=== PATIENT | female | born 1970 | race Caucasian/White ===

== ENCOUNTER → 2021-08-25 15:33 | Outpatient (CLI) | payer OTHER, SELFPAY ==
--- NOTE | ~2021-08-25 | MM_ITS ---
EXAMINATION: MM screening [facility] BI w aubrey HISTORY: Screening mammogram TECHNIQUE: Craniocaudal and mediolateral oblique 3-D tomosynthesis images were obtained and synthetic 2-D images were generated. CAD analysis was submitted and interpreted. COMPARISON: 11/07/2018, 09/07/2016, 08/28/2016 BREAST PARENCHYMAL COMPOSITION: There are scattered areas of fibroglandular density. FINDINGS: RIGHT BREAST: There is a possible mass in the middle third of the outer breast best appreciated 7.5 c m from the nipple on the craniocaudal view. LEFT BREAST: There is no evidence of suspicious mass, calcification, or architectural distortion to s uggest malignancy. There has been no significant interval change. IMPRESSION: 1. Possible right breast mass. 2. Additional mammographic views and possible breast ultrasound are recommended. BI-RADS Category 0: Incomplete: Needs additional imaging evaluation. Reviewed, dictated and finalized at location A. SONIC ENGINEER IMPRESSION: 1. Possible right breast mass. 2. Additional mammographic views and possible breast ultrasound are recommended . BI-RADS Category 0: Incomplete: Needs additional imaging evaluation.
--- NOTE | ~2021-08-25 | DEXA_ITS ---
Bone Density Report Name: MICHAEL MCDERMOTT Age: 51 Sex: Female Ethnicity: White Date of : 1970 Indication: postmenopausal; screening for osteoporosis; height loss; Referring Provider: Madai, Kisha Study: Bone densitometry was performed. Exam Date: August 25, 2021 Accession number: [id number] Bone Density: Region BMD T-score Z-score Classification AP Spine (L1-L4) 1.100 0.5 1.3 Normal Femoral Neck (Left) 0.841 -0.1 0.7 Normal Total Hip (Left) 1.074 1.1 1.6 Normal Femoral Neck (Right) 0.901 0.5 1.3 Normal Total Hip (Right) 1.058 1.0 1.5 Normal Total Hip Mean 1.066 1.1 1.6 Normal World Health Organization criteria for BMD impression classify patients as: Normal (T-score at or above -1.0), Osteopenia (T-score between -1.0 and -2.5), or Osteoporosis (T-score at or below -2.5). 10-year Fracture Risk: FRAX not reported because: All T-scores for Spine Total, Hip Total, Femoral Neck at or above -1.0 Clinical Information Provided by Patient: Has used the following medications: Vitamin D Patient maximum height was 64 Drinks caffeinated beverages Onset of menses at age 12 Number of children 2 Missed period for more than 6 months in a row Impression: The patient has normal bone mass. Discussion: BONE DENSITY IS ABOVE THE MINIMUM DESIRABLE LEVEL AT ALL SKELETAL SITES TESTED. This patient?s bone mineral density is above the minimum desirable level (T-score -1.0 or better) at all sites measured. The patient should follow a healthful lifestyle (good nutrition with adequate calcium and vitamin D, and appropriate weight-bearing exercise). Follow-Up: Consider repeating this study in 5 years or sooner if there is some new clinical indication. Reported by: [facility] on 08/25/2021 4:15:00 PM. Reviewed, dictated and finalized at location AMeliza SORENSEN
== END ==
PROVIDERS: PCP Nurse Practitioner; Visit Provider Nurse Practitioner
DX: Z12.31 Encounter for screening mammogram for malignant neoplasm of breast (principal); Z13.820 Encounter for screening for osteoporosis; Z78.0 Asymptomatic menopausal state; R92.8 Other abnormal and inconclusive findings on diagnostic imaging of breast
CPT/HCPCS: 77063; 77067; 77080

== ENCOUNTER → 2021-09-10 07:57 | Outpatient (CLI) | payer OTHER, SELFPAY ==
--- NOTE | ~2021-09-10 | MMUS_ITS ---
EXAMINATION: MM diagnostic [facility] RT w aubrey, US breast RT limited HISTORY: Possible right breast mass on screening mammogram TECHNIQUE: Additional 3-D tomosynthesis images of the right breast were performed and synthetic 2-D i mages were generated. CAD analysis was submitted and interpreted. High resolution limited right breas t ultrasound was performed. COMPARISON: 08/25/2021, 11/07/2018 BREAST PARENCHYMAL COMPOSITION: There are scattered areas of fibroglandular density. FINDINGS: MAMMOGRAPHIC FINDINGS: There is a return to baseline fibroglandular appearance with spot compression of the right breast in the area questioned on screening mammogram. ULTRASOUND: There is no evidence of focal abnormal solid or cystic mass in the vicinity of the mammographic findi ng in question. IMPRESSION: 1. No mammographic or sonographic evidence of malignancy. 2. Recommend routine screening mammography in one year. BI-RADS Category 1: Negative Reviewed, dictated and finalized at location A. NESS AFFAIRS MANAGER IMPRESSION: 1. No mammographic or sonographic evidence of malignancy. 2. Recommend routine screening mammography in one year. BI-RADS Category 1: Negative
== END ==
PROVIDERS: Visit Provider Obstetrics & Gynecology Gynecology
DX: R92.8 Other abnormal and inconclusive findings on diagnostic imaging of breast (principal)
CPT/HCPCS: 76642; 77061; 77065; G0279

== ENCOUNTER 2022-09-14 13:15 | Emergency (ER) | payer OTHER, SELFPAY ==
--- NOTE | ~2022-09-14 | XR_ITS ---
EXAMINATION: XR lumbar spine 2-3V DATE: 09/14/2022 13:50 INDICATION: Low back pain. TECHNIQUE: 3 views of lumbar spine were obtained. COMPARISON: None. FINDINGS: There is 9 degrees levocurvature of lumbar spine. Vertebral body heights are normal. There is mildly decreased disc height at L3-L4 and L4-L5. There are endplate osteophytes at most levels. Th ere is multilevel mild to moderate facet joint osteoarthritis. Surgical clips in the right upper quad rant are likely from cholecystectomy. IMPRESSION: 1. Mild lumbar spondylosis. Reviewed, dictated and finalized at location A. ON PICTURE SET WORKER IMPRESSION: 1. Mild lumbar spondylosis.
[2022-09-14 13:25] VITALS: BP 141/88; PULSE 98; RESP 16; TEMP 36.5; O2SAT 98
[2022-09-14 13:28] VITALS: BP 141/88; PULSE 98; RESP 16; TEMP 36.5; O2SAT 98
--- NOTE | 2022-09-14 13:59 | ED.GENADULT ---
HPI - General Adult General Chief complaint: Back Pain/Injury Stated complaint: INJURED BACK/L LEG/L HIP NUMBNESS Source: patient Mode of arrival: ambulatory Limitations: no limitations History of Present Illness HPI narrative: Patient presents for evaluation of low back pain. She has a history of low back pain for several decades. She can identify any specific initial injury. However over the years she has had certain movements that have caused worsening pain. She has seen a chiropractor in the past. She rates her pain currently 8/10 in severity, which has been fairly consistent over the past two weeks. She states pain is sharp with radiation into the left lower extremity, particularly the hip. She has some numbness in her left leg. She sta She denies saddle anesthesia. No bladder or bowel incontinence. She tried taking ibuprofen and tylenol with codeine for her symptoms. No additional complaints or concerns. Related Data Home Medications Medication Instructions Recorded Confirmed bupropion HCl 300 mg 24 hr tablet, 300 mg PO QAM 01/20/21 09/14/22 extended release cholecalciferol (vitamin D3) 1,250 1,250 mcg PO WEEKLY 01/20/21 09/14/22 mcg (50,000 unit) capsule escitalopram oxalate 20 mg tablet 20 mg PO DAILY 01/20/21 09/14/22 levothyroxine 100 mcg tablet 100 mcg PO DAILY 01/20/21 09/14/22 (Synthroid) Allergies Allergy/AdvReac Type Severity Reaction Status Date / Time Cephalosporins Allergy Mild GI UPSET Verified 09/14/22 13:25 tetanus toxoid, adsorbed Allergy Unknown Fever Verified 09/14/22 13:25 Tetanus Vaccines and Toxoid Allergy Unknown Fever Verified 09/14/22 13:25 tetanus vaccine Allergy Mild fever, Uncoded 09/14/22 13:25 chills, vomiting, headache HIGH MOLD LEVELS Allergy Unknown SNEEZEY, Uncoded 09/14/22 13:25 SORE THROAT, SINUS INFECTION Review of Systems Review of Systems: CONSTITUTIONAL: Denies fever, chills, or sweats. EYES: Denies visual changes, redness, or discharge. ENT: Denies rhinorrhea, congestion, sore throat, or otalgia. CARDIOVASCULAR: Denies chest pain, palpitations, or edema. RESPIRATORY: Denies cough or dyspnea. GASTROINTESTINAL: Denies abdominal pain, nausea, vomiting, or diarrhea. GENITOURINARY: Denies dysuria or hematuria. SKIN: Denies rash or itching. MUSCULOSKELETAL: Reports low back pain. Reports left hip pain. NEUROLOGIC: Denies headache, numbness, dizziness, or weakness. PSYCHIATRIC: Denies anxiety or depression. [facility] Past Medical History Medical History Anxiety Essential hypertension Hypothyroidism Mixed hyperlipidemia Surgical History Surgical History History of Family History Family History Other Alzheimer disease Diabetes mellitus Social History Social History Smoking status: Never smoker Second hand tobacco smoke exposure: No Alcohol intake: current Substance use: never Substance use type: does not use Living arrangements: with family Occupation/Education: occupation Gender identity (if verbalized by the patient): Female Sexual Orientation (if Verbalized by the Patient): Straight or Heterosexual Spiritual care concerns: No Agree to blood products: Yes Exam Narrative: GENERAL: Well-appearing, well-nourished, and in no acute distress. HEAD: Normocephalic, atraumatic. EYES: PERRLA and EOMI. ENT: Nares clear, no rhinorrhea or epistaxis. Mucous membranes moist. Oropharynx without tonsillar hypertrophy exudate or other lesions. Bilateral TMs pearly gutierrez nonbulging NECK: Supple. No adenopathy or masses. No carotid bruits or JVD CHEST: Clear to auscultation. No respiratory distress. No wheezes rales or rhonchi HEART: Regular rate and rhyt
[2022-09-14] MEDS: KETOROLAC (*BKC) 60 MG/2 ML VIAL IM (14:00)
== END 2022-09-14 14:19 | disposition home or self-care (01) ==
PROVIDERS: Emergency Provider Nurse Practitioner; PCP Family Medicine
DX: M54.16 Radiculopathy, lumbar region (principal); M47.816 Spondylosis without myelopathy or radiculopathy, lumbar region; I10 Essential (primary) hypertension; E03.9 Hypothyroidism, unspecified; E78.2 Mixed hyperlipidemia; F41.9 Anxiety disorder, unspecified
CPT/HCPCS: 72100; 96372; 99213; G0463; J1885

== ENCOUNTER → 2022-10-04 07:12 | Outpatient (CLI) | payer OTHER, SELFPAY ==
--- NOTE | ~2022-10-04 | MR_ITS ---
EXAMINATION: MR lumbar spine wo con DATE: 10/04/2022 07:37 INDICATION: Low back pain. TECHNIQUE: Magnetic resonance imaging (MRI) of the lumbar spine was performed without intravenous con trast. Sequences included sagittal T2-weighted FSE, sagittal T2-weighted FS FSE, sagittal T1-weighted FSE, and axial T2-weighted FSE. COMPARISON: Lumbar spine radiographs 09/14/2022 FINDINGS: There is 10 degrees levoscoliosis of lumbar spine. Vertebral body heights are normal. There is mildly decreased disc height at L3-L4, moderately decreased disc height at L4-L5, and mildly decr eased disc height at L5-S1. The distal spinal cord signal intensity is normal. The conus medullaris i s at L1. The following disc levels are specifically discussed: L1-L2: The disc does not extend beyond the endplate margin. There is mild bilateral facet joint osteo arthritis. There is no neural foraminal stenosis. There is no central canal stenosis. L2-L3: There is a left foraminal protrusion. There is mild bilateral facet joint osteoarthritis. Ther e is mild left neural foraminal stenosis. There is no central canal stenosis. L3-L4: The disc is bulging. There is mild right and moderate left facet joint osteoarthritis. There i s mild bilateral neural foraminal stenosis. There is no central canal stenosis. L4-L5: The disc is bulging with large central extrusion exerts mass effect on the bilateral L5 nerve roots. There is moderate bilateral facet joint osteoarthritis. There is mild right and moderate left neural foraminal stenosis. There is mild central canal stenosis at the midline. There is moderate lico nosis of right lateral recess and severe stenosis of left lateral recess. L5-S1: The disc is bulging. The disc abuts right S1 nerve root in right lateral recess. There is mode rate right and mild left facet joint osteoarthritis. There is mild bilateral neural foraminal stenosi s. There is mild central canal stenosis. IMPRESSION: 1. Severe lumbar spondylosis, worst at L4-L5. 2. Lumbar levoscoliosis. Reviewed, dictated and finalized at location A. ING GENERAL SUPERINTENDENT
== END ==
PROVIDERS: PCP Family Medicine; Visit Provider Physical Medicine & Rehabilitation
DX: M47.896 Other spondylosis, lumbar region (principal)
CPT/HCPCS: 72148

== ENCOUNTER → 2023-04-16 08:42 | Outpatient (CLI) | payer OTHER, SELFPAY ==
--- NOTE | ~2023-04-16 | MM_ITS ---
EXAMINATION: MM screening [facility] BI w aubrey HISTORY: Screening mammogram TECHNIQUE: Craniocaudal and mediolateral oblique 3-D tomosynthesis images were obtained and synthetic 2-D images were generated. CAD analysis was submitted and interpreted. COMPARISON: September 10, 2021 diagnostic right mammogram and limited right breast ultrasound, reporte d negative 08/25/2021, 11/07/2018 bilateral screening mammogram examinations BREAST PARENCHYMAL COMPOSITION: There are scattered areas of fibroglandular density. FINDINGS: There is no evidence of suspicious mass, calcification, or architectural distortion to sugg est malignancy in either breast. There has been no suspicious interval change. IMPRESSION: 1. No mammographic evidence of malignancy. 2. Recommend routine screening mammography in one year. BI-RADS Category 1: Negative Reviewed, dictated and finalized at location A.
== END ==
PROVIDERS: PCP Family Medicine; Visit Provider Obstetrics & Gynecology Gynecology
DX: Z12.31 Encounter for screening mammogram for malignant neoplasm of breast (principal)
CPT/HCPCS: 77063; 77067

== ENCOUNTER → 2023-09-08 09:16 | Outpatient (CLI) | payer OTHER, SELFPAY ==
--- NOTE | ~2023-09-08 | US_ITS ---
Pelvic ultrasound. Clinical History: Pelvic pain Technique: Realtime transabdominal and transvaginal scanning of the pelvis was performed. Color flow Doppler and Doppler spectral analysis were performed. Findings: The uterus is anteverted, and measures 8.0 x 3.4 x 4.4 cm. The endometrial stripe has a th ickness of 2 mm. No focal mass is identified. Neither ovary seen. No adnexal mass seen. There is no evidence of free fluid in the cul de sac. Impression: No significant abnormality seen. Neither ovary visualized. Reviewed, dictated and finalized at location . K CLERK Impression: No significant abnormality seen. Neither ovary visualized.
== END ==
PROVIDERS: PCP Nurse Practitioner; Visit Provider Nurse Practitioner
DX: R10.2 Pelvic and perineal pain (principal)
CPT/HCPCS: 76830

== ENCOUNTER 2024-06-09 10:52 | Outpatient (CLI) | payer OTHER, SELFPAY ==
--- NOTE | ~2024-06-09 | MM_ITS ---
EXAMINATION: MM screening [facility] BI w aubrey HISTORY: Screening mammogram TECHNIQUE: Craniocaudal and mediolateral oblique 3-D tomosynthesis images were obtained and synthetic 2-D images were generated. CAD analysis was submitted and interpreted. COMPARISON: 04/16/2023, 09/10/2021, 08/25/2021, 11/07/2018 BREAST PARENCHYMAL COMPOSITION:Not Dense. There are scattered areas of fibroglandular density. FINDINGS: No suspicious mass, calcification, or architectural distortion are identified in either milli ast to suggest malignancy. There has been no suspicious interval change. IMPRESSION: No mammographic evidence of malignancy. Recommend routine screening mammography in one year. BI-RADS Category 1: Negative Reviewed, dictated and finalized at location . ON CARE ASSOCIATE
== END 2024-06-09 10:53 | disposition home or self-care (01) ==
LOC: MICIMG 10:52
PROVIDERS: PCP Family Medicine; Visit Provider Nurse Practitioner
DX: Z12.31 Encounter for screening mammogram for malignant neoplasm of breast (principal)
CPT/HCPCS: 77063; 77067

== ENCOUNTER 2025-02-07 16:21 | Emergency (ER) | payer OTHER, SELFPAY ==
[2025-02-07 16:30] VITALS: BP 127/84; PULSE 98; RESP 16; TEMP 36.4; O2SAT 97
--- NOTE | 2025-02-07 16:41 | ED.FEMALEGU ---
HPI - Female Genitourinary General Chief complaint: Urogenital-Female Stated complaint: Uti Symptoms Time Seen by Provider: 02/07/25 16:30 Source: patient and RN notes reviewed Mode of arrival: ambulatory Limitations: no limitations History of Present Illness HPI Narrative: 54-year-old female presents [facility] complaining of vaginal irritation and itchiness for the last 3 weeks. Patient says she has tried [id number] Monistat, eating yogurt, and a vaginal cleaner touch up worker without any relief. Patient denies any vaginal discharge, vaginal bleeding, urinary symptoms, nausea, vomiting, diarrhea, fevers, body aches, chills, or any concerns of sexually transmitted diseases. Related Data Home Medications ?Medication ?Instructions ?Recorded ?Confirmed ?Last Taken ?Type cholecalciferol (vitamin D3) 1,250 1,250 mcg PO WEEKLY 01/20/21 02/07/25 Unknown History mcg (50,000 unit) capsule escitalopram oxalate 20 mg tablet 20 mg PO DAILY 01/20/21 02/07/25 Unknown History bupropion HCl 150 mg 24 hr tablet, 150 mg PO DAILY 02/07/25 02/07/25 Unknown History extended release Allergies Allergy/AdvReac Type Severity Reaction Status Date / Time Cephalosporins Allergy Mild GI UPSET Verified 02/07/25 16:27 tetanus toxoid, adsorbed Allergy Unknown Fever Verified 02/07/25 16:27 Tetanus Vaccines and Toxoid Allergy Unknown Fever Verified 02/07/25 16:27 HIGH MOLD LEVELS Allergy Unknown SNEEZEY, Uncoded 02/07/25 16:27 SORE THROAT, SINUS INFECTION Review of Systems Review of Systems: CONSTITUTIONAL: Denies fever, chills, or sweats. EYES: Denies visual changes, redness, or discharge. ENT: Denies rhinorrhea, congestion, sore throat, or otalgia. CARDIOVASCULAR: Denies chest pain, palpitations, or edema. RESPIRATORY: Denies cough or dyspnea. GASTROINTESTINAL: Denies abdominal pain, nausea, vomiting, or diarrhea. GENITOURINARY: Denies dysuria, vaginal discharge, pelvic pain, vaginal bleeding, or hematuria. Positive for vaginal irritation and itchiness. SKIN: Denies rash or itching. MUSCULOSKELETAL: Denies back pain, joint pain, or myalgia. NEUROLOGIC: Denies headache, numbness, or weakness. PSYCHIATRIC: Denies anxiety or depression. All other systems reviewed are negative, except as documented in HPI. [facility] Past Medical History Medical History Anxiety Mixed hyperlipidemia Hypothyroidism Essential hypertension Surgical History Surgical History History of Family History Family History Other Alzheimer disease Diabetes mellitus Social History Social History Smoking status: Never smoker Second hand tobacco smoke exposure: No Alcohol intake: current Substance use: never Substance use type: does not use Lack of Transportation: No Lack of Food: Never True Current Housing: I Have Housing Concerned About Future Housing: No Difficulty Paying Gas/Electric Bills: No Difficulty Paying for Meds: No Currently Unemployed: YES Education: Master's Degree or Higher Difficulty w/ Childcare or Family Care: No Living arrangements: with family Occupation/Education: occupation Gender identity (if verbalized by the patient): Female Sexual Orientation (if Verbalized by the Patient): Straight or Heterosexual Spiritual care concerns: No Agree to blood products: Yes Comments At the time of my signature, I reviewed and agree with the nursing past medical, surgical, social, and family history. There is no relevant family history pertinent to the patient complaint. Exam Narrative: GENERAL: This is a well-nourished, well-developed adult, in no apparent distress. They are non ill-appearing, nontoxic appearing. HEAD: normocephalic, atraumatic. EYES: Sclera clear/white. Conjunctiva normal. Vision is grossly intact. Extraocular movements intact EARS: External ears normal, Hearing grossly intact. NOSE: External nose normal THROAT: Mucous membranes moist, NECK: Neck supple, CARDIOVASCULAR: Regular rate and rhythm RESPIRATORY: Respiratory rate normal, respiratory effort nonlabored, no respiratory distress GENITOURINARY: Patient declined pelvic exam and vaginal exam. SKIN: warm, Dry, intact with no suspicious lesions or rash, good texture and turgor. NEURO: awake, alert, and oriented to person, place and time. There were no obvious focal neurologic abnormalities. EXTREMITIES: No joint tenderness, effusion, or edema noted. Course Course Emergency Course: Portions of this record may have been created with voice recognition software Level of Care: Express Care Visit Vital Signs Vital signs: Vital Signs Temperature 97.6 F 02/07/25 16:30 Pulse Rate 98 02/07/25 16:30 Respiratory Rate 16 02/07/25 16:30 Blood Pressure 127/84 02/07/25 16:30 Pulse Oximetry 97 02/07/25 16:30 Temperature 97.6 F 02/07/25 16:30 Pulse Rate 98 02/07/25 16:30 Respiratory Rate 16 02/07/25 16:30 Blood Pressure 127/84 02/07/25 16:30 Pulse Oximetry 97 02/07/25 16:30 Reviewed MDM - Female Genitourinary MDM Narrative Medical decision making narrative: Patient's symptoms are likely consistent with vaginal yeast infection. However patient states she has had bacterial vaginosis with similar symptoms without discharge. Offered patient pelvic exam further evaluate her symptoms and she declined. Patient is agreeable to do self swab for vaginal culture and bacterial vaginosis. Patient declines wanting any STD testing as she states she has no concerns for it. Will go ahead and treat the patient for vaginal yeast infection will fluconazole, patient will be contacted on the results of her bacterial vaginosis and appropriate antibiotics will be prescribed if positive. Discussed physical exam findings. Advised supportive measures and signs/symptoms to go to the ER. Pt is appropriate for outpt treatment and f/u. Differential Diagnosis Differential diagnosis: Likely bacterial vaginosis and other (Vaginal yeast infection, vaginitis, sexually transmitted disease) Critical Care Time Critical Care Time Critical Care Time: No Discharge Plan Discharge Clinical Impression: Vaginal irritation Patient Disposition: Home Condition: Stable Instructions: Yeast Infection (ED) Additional Instructions: You will be contacted about your results of your vaginal culture and bacterial vaginosis. Will go ahead and treat you for vaginal yeast infection with fluconazole. Take this as directed. If you bacterial vaginosis is positive you will be contacted started on appropriate antibiotics. Follow-up with your OBGYN or PCP in 3-5 days for further evaluation and management. Please go to the ER if you develop severe abdominal pain, fevers, vaginal discharge, pelvic pain, nausea, vomiting, urinary symptoms, or any other concerns. Patient Language: Tuvaluan Prescriptions: New fluconazole 150 mg tablet 150 mg PO Q72H 3 Days Qty: 2 0RF No Action bupropion HCl 150 mg tablet extended release 24 hr 150 mg PO DAILY cholecalciferol (vitamin D3) 1,250 mcg (50,000 unit) capsule 1,250 mcg PO WEEKLY escitalopram oxalate 20 mg tablet 20 mg PO DAILY (DME) pen needle, diabetic [BD Ultra-Fine Mini Pen Needle] 31 gauge x 3/16 needle See Rx Instructions .Route Qty: 50 1RF Rx Instructions: As directed weekly metformin 500 mg tablet 500 mg PO BIDWMEAL Qty: 180 1RF levothyroxine [Synthroid] 100 mcg tablet See Rx Instructions .ROUTE .COMPLEX Qty: 90 1RF Rx Instructions: Taking 0.5 tab Sundays and 1 tab daily other days lisinopril 5 mg tablet 5 mg PO DAILY Qty: 90 3RF simvastatin 10 mg tablet 10 mg PO DAILY Qty: 90 3RF Jardiance 10 mg tablet 10 mg PO DAILY Qty: 90 1RF Ozempic 1 mg/dose (4 mg/3 mL) pen injector 1 mg subcut WEEKLY Qty: 3 2RF Follow-up/Referrals: Yi Blake MD [Primary Care Provider] - Manuel Leo MD [Physician] - Time of Disposition: 16:53
== END 2025-02-07 17:05 | disposition home or self-care (01) ==
PROVIDERS: PCP Family Medicine
DX: R10.2 Pelvic and perineal pain (principal); N89.8 Other specified noninflammatory disorders of vagina; I10 Essential (primary) hypertension; E78.2 Mixed hyperlipidemia; E03.9 Hypothyroidism, unspecified; F41.9 Anxiety disorder, unspecified
CPT/HCPCS: 87070; 87798; 99213; G0463